=== PATIENT | male | born 1950 | race Caucasian/White ===

== ENCOUNTER 2018-05-11 11:58 | Inpatient (IN) | payer MEDICARE ==
[~2018-05-11] VITALS: Ht 188 cm; Wt 100.7 kg
[~2018-05-11 11:58] MED LIST: CELEBREX50 MG PO; CIALIS5 MG PO; CLARITIN5 MG PO; CRESTOR20 MG PO; ELIQUIS5 MG PO; LUNESTA3 MG PO; MELOXICAM15 MG PO; NORCO 10-325 T1 EACH PO; NORCO 5-325 TA1 EACH PO; ROBAXIN-750750 MG PO; ZOCOR10 MG PO
--- NOTE | 2018-05-11 16:43 | NUR ---
PT ARRIVED TO ROOM 127 VIA STRETCHER, WEIGHED WITH STANDING SCALE 222#. AMBULATED TO VALENTÍN CHAIR. ASSESSMENT COMPLETED, DENIES C/O AT THIS TIME. CARDIAZEM GTT RUNNING AT 10 MG/HR.
[2018-05-11] MEDS ORDERED: ROSUVASTATIN CA20 MG PO (17:30)
--- NOTE | 2018-05-11 17:38 | NUR ---
PT RETURNED TO BED AND VOIDED 600 MLS CLEAR YELLOW URINE. CARDIAZEM GTT DECREASED TO 8MG/HR. HR 94 BPM.
--- NOTE | 2018-05-11 18:09 | NUR ---
MED REC COMPLETE
--- NOTE | 2018-05-11 18:48 | NUR ---
DILTIAZEM GTT DECREASED TO 5MG/HR. HR 88.
--- NOTE | 2018-05-11 19:45 | NUR ---
PATIENT RESTING COMFORTABLY IN BED, BREATHING IS EVEN AND UNLABORED. DENIES NEEDS AT THIS TIME, DENIES PAIN. ASSESSMENT DONE AND MEDICATIONS GIVEN. CALL LIGHT WITHIN REACH.
--- NOTE | 2018-05-11 19:59 | NUR ---
TITRATED CARDIZEM GTT TO 2.5 MG/HR DUE TO HEART RATE REMAINING IN 80s.
--- NOTE | 2018-05-11 21:00 | EKG ---
[facility] [address] [facility] [place], [place] [address] Signed Atrial flutter with variable AV block Abnormal ECG No previous ECGs available Confirmed by ROMA TITUS MD ([id number]) on 05/11/2018 9:00:26 PM Electronically Signed By: ROMA TITUS MD 05/11/18 2100 PATIENT NAME: VEL MCKENZIEOMID III Electrocardiogram DATE OF : 54 PHYSICIAN: ROMA TITUS MD REPORT #: [id number] REPORT IS CONFIDENTIAL AND NOT TO BE RELEASED WITHOUT AUTHORIZATION
--- NOTE | 2018-05-11 22:05 | NUR ---
PATIENT RESTING COMFORTABLY IN BED, BREATHING IS EVEN AND UNLABORED. DENIES NEEDS AT THIS TIME. CARDIZEM GTT DISCONNECTED. CALL LIGHT WITHIN REACH.
--- NOTE | 2018-05-12 | NUR ---
PATIENT RESTING IN BED, BREATHING IS EVEN AND UNLABORED. DENIES NEEDS AT THIS TIME. HEART RATE REMAINS IN 80s WHILE OFF CARDIZEM GTT. CALL LIGHT WITHIN REACH.
--- NOTE | 2018-05-12 02:05 | NUR ---
PATIENT REPORTS NAUSEA WHEN LAYING DOWN TO SLEEP, RELIEVED BY ELEVATING HEAD OF BED. PRN ZOFRAN GIVEN. PATIENT DENIES FURTHER NEEDS. CALL LIGHT WITHIN REACH.
--- NOTE | 2018-05-12 02:24 | NUR ---
PT SPO2 DIPS TO 85% AND THEN BACK TO MID 90'S WHILE SLEEPING. PT HAS KNOWN SLEEP APNEA AND STATES HE USES A CPAP AT HOME. PT DENIES WANTING TO USE A CPAP MACHINE AT THIS TIME. PT IS AGREEABLE TO WEARING OXYGEN 2L AT THIS TIME. WILL CONTINUE TO CLOSELY MONITOR.
--- NOTE | 2018-05-12 04:40 | NUR ---
PT RESTING IN BED. PT WOKE AND TOOK SCHEDULED MEDICATIONS WITH NO DIFFICULTIES. PT REQUESTED TO HAVE BLINDS SHUT. PT ASSESSMENT COMPLETED AND DENIES ANY NEEDS AT THIS TIME. WILL CONTINUE TO ENCOURAGE REST. CALL LIGHT IN HAND. PT CALLS APPROPRIATELY.
--- NOTE | 2018-05-12 06:15 | NUR ---
PATIENT RESTING IN BED, BREATHING IS EVEN AND UNLABORED. DENIES NEEDS AT THIS TIME. CALL LIGHT WITHIN REACH.
--- NOTE | 2018-05-12 07:30 | NUR ---
bedside report recieved.
--- NOTE | 2018-05-12 07:40 | NUR ---
UP TO BR TO EXPELL STOOL. BACK TO BED W/O INCIDENT. DENIES SHORTNESS OF BREATH OR DIZZINESS.
--- NOTE | 2018-05-12 09:00 | NUR ---
TOOK BREAKFAST FAIR. TALKATIVE, IN GOOD SPIRITS.
--- NOTE | 2018-05-12 09:36 | NUR ---
echo being done at bedside.
--- NOTE | 2018-05-12 10:03 | NUR ---
ECHO COMPLETE. PATIENT IS W/O C/O.
--- NOTE | 2018-05-12 11:00 | NUR ---
IS RESTFUL, ROUTINE CARDIZEM 90 MG PO GIVEN.
--- NOTE | 2018-05-12 13:17 | NUR ---
TELE # 3 APPLIED. WILL BE TRANSFERRED TO MEDICAL FLOOR THIS AFTERNOON. IS W/O C/O.
--- NOTE | 2018-05-12 16:00 | NUR ---
ASSESSMENT DONE. IS W/O. HAS BEEN RESTING IN BED MOST OF DAY.
--- NOTE | 2018-05-12 17:30 | NUR ---
RECEIVED REPORT FROM ALVARO. PT WATCHING BASEBALL HAS NO NEEDS.
--- NOTE | 2018-05-12 17:45 | NUR ---
REPORT GIVEN TO MED-SURG, AMBULATED TO ROOM 113 FROM 127. DENIES SHORTNESS OF BREATH OR DIZZINESS,
--- NOTE | 2018-05-12 18:25 | NUR ---
PT TRANSFERED TO THE FLOOR AT 1730. VERY TALKATIVE AND FRIENDLY. DENIES CONCERNS. TELE #3 80-100'S AFIB. ASYMPTOMATIC. O2 WITH SLEEP. 1600 ML FLUID RESTRICTION.
--- NOTE | 2018-05-12 21:30 | NUR ---
REQUESTED ICE WATER, GIVEN. HE IS AWARE HE IS ON FLUID RESTRICTIONS AND IS CURRENLTY UNDER THE 1600 RESTRICTION.
--- NOTE | 2018-05-12 22:20 | NUR ---
MEDICATIONS GIVEN; DENIES NAUSEA, BUT STATED THAT HE GOT SOME "FROM JANNY" LAST NIGHT AND HE SLEPT SO WELL. HE IS AWARE IF HE GETS NAUSEATED HE CAN REQEUST SOME.
--- NOTE | 2018-05-13 01:58 | NUR ---
RECEIVED REPORT AT 0100. PT AT THAT TIME WAS SLEEPING.
--- NOTE | 2018-05-13 04:00 | NUR ---
PT IS STILL SLEEPING AT THIS TIME.
--- NOTE | 2018-05-13 06:03 | NUR ---
PT SLEPT ALL NIGHT AND DID NOT HAVE ANY NEEDS. V/S ARE WDL. PT STATED THAT HE FEELS MUCH BETTER TODAY. EDEMA IN LEFT FOOT IS +1, RIGHT FOOT IS MINIMAL. ALL LOBES ARE CLEAR. FLUID RESTRICTION IS BEING FOLLOWED ORDERED. NO NEW CONCERNS AT THIS TIME.
--- NOTE | 2018-05-13 08:30 | NUR ---
PT UP TO CHAIR TO EAT BREAKFAST, NO DISTRESS, DENIES SOB AND CHEST PAIN. PT STATES HE FEELS "SO MUCH BETTER TODAY". TELE SHOWS AFIB, HR WELL CONTROLLED IN THE 80'S SUSTAINED. WILL CONTINUE TO MONITOR.
--- NOTE | 2018-05-13 12:41 | NUR ---
PT AT BEDSIDE, PT IS ANXIOUS ABOUT UPCOMING SURGERY. PT REFUSED LUNCH. OFFERED ENCOURAGEMENT. NO CHANGES IN CONDITION. WILL CONTINUE TO MONITOR.
--- NOTE | 2018-05-13 16:00 | NUR ---
PT AT BEDSIDE, NO CHANGE IN CONDITION. DISCUSSED FLUID RESTRICTION PARAMETERS. PT IS RESTING COMFORTABLY, DENIES PAIN AND SOB. WILL CONTINUE TO MONITOR.
--- NOTE | 2018-05-13 18:09 | NUR ---
PT WAS ANTICIPATING DISCHARGE TODAY BUT WAS RETAINED DUE TO FINDINGS ON ECHO AND UPCOMING CARDIAC VALVE SURGERY. PT IS CONCERNED ABOUT THIS. PT IS COMPLETELY STABLE, HR 70-80'S SUSTAINED, ARIB ON MONITOR THROUGHOUT SHIFT. PT HAS DENIED PAIN AND SOB THROUGHOUT SHIFT. PT EDEMA HAS CONSIDERED TO DECREASE TO BLE, 1600 CC FLUID RESTRICTION, PT IS COMPLIANT.
--- NOTE | 2018-05-13 19:20 | NUR ---
PATIENT TOOK HIS SHOWER THIS MORNING. AND AM CARE. SITS IN HIS CHAIR FOR EACH MEAL.
--- NOTE | 2018-05-13 19:43 | NUR ---
COOP WITH ASSESSMENT, NO C/O CP PAIN, TELE#[address],
--- NOTE | 2018-05-14 00:06 | NUR ---
RESTING, NO DISTRESS, NO C/O PAIN. TELE#[address]
--- NOTE | 2018-05-14 03:16 | NUR ---
resting, eyes closed, no c/o cp or sob. Call lit at bedside
--- NOTE | 2018-05-14 05:10 | NUR ---
Pt awake, watching tv, no c/o cp or sob. Tele#[address], Irregular hear rate and rhythm, multiform PVC's. Continues to worry about heart valve replacement surgery. Has slept off and on this shift, Independent in room.
--- NOTE | 2018-05-14 05:13 | NUR ---
VITALS AND I&OS DONE AND CHARTED. CALL LIGHT WITHIN REACH. PT NEEDS NOTHING ELSE AT THIS TIME. PT LAYING ON THE COUCH WHEN I LEFT.
[2018-05-14] MEDS ORDERED: DILTIAZEM ER180 MG PO (09:34)
--- NOTE | 2018-05-14 09:58 | NUR ---
PT AT BEDSIDE WITH PARTNER, PT EXPRESSES A NEED FOR MORE SLEEP, AND WAS VERY ANXIOUS LAST NIGHT. PT VS STABLE, AFIB ON TELE, SUSTAINED UNDER 100 BPM. PT DENIES PAIN AND SOB. PREPARING FOR DISCHARGE.
--- NOTE | 2018-05-14 12:52 | NUR ---
I ASKED PATIENT THIS MORNING IF HE WOULD LIKE TO TAKE A SHOWER HE SAID NO BECAUSE HE TOOK A SHOWER THE DAY BEFORE AND HE WAS GOING HOME.
== END 2018-05-14 10:30 | disposition home or self-care (01) | DRG 308 ==
LOC: ED 11:58 → CCU 14:19 → MS 05-12 17:54
PROVIDERS: ADMIT Internal Medicine
DX: I48.91 Unspecified atrial fibrillation (principal); I50.31 Acute diastolic (congestive) heart failure; I08.1 Rheumatic disorders of both mitral and tricuspid valves; E78.5 Hyperlipidemia, unspecified; M10.9 Gout, unspecified; I10 Essential (primary) hypertension; I27.20 Pulmonary hypertension, unspecified; Z79.899 Other long term (current) drug therapy; Z87.891 Personal history of nicotine dependence; Z57.31 Occupational exposure to environmental tobacco smoke
CPT/HCPCS: 36415; 71045; 80048; 80053; 83735; 83880; 84484; 85025; 85610; 93005; 93010; 93306; J2405

== ENCOUNTER 2023-07-08 05:48 | Day surgery (SDC) | payer MEDICARE, OTHER ==
[2023-06-15 09:11] VITALS: BP 120/80
[~2023-07-08] VITALS: Ht 188 cm; Wt 89.5 kg
[~2023-07-08 05:48] MED LIST changes: +ALLOPURINOL100 MG PO; +DILTIAZEM ER180 MG PO; +FUROSEMIDE20 MG PO; +K-TAB ER20 MEQ PO; +LISINOPRIL10 MG PO; +ROSUVASTATIN CA20 MG PO; +ZOLPIDEM TARTRAT5 MG PO
[2023-07-08 06:22] VITALS: BP 129/74
--- NOTE | 2023-07-08 07:12 | NUR ---
PT IN OVERALL GOOD SPIRITS. CONSENTED TO PRAYER. PRAYED FOR SUCCESSFUL PROCEDURE AND AWARENESS OF DIVINE PRESENCE.
--- NOTE | 2023-07-08 08:37 | NUR ---
07/08/23 0837 Chaparrita Mock 0827 PT TO PACU WAKE OFF AND ON, DENIES PAIN AND NAUSEA. PT PASSING AMY.
[2023-07-08 09:15] VITALS: BP 142/85
--- NOTE | 2023-07-08 09:32 | NUR ---
904: PT BACK TO DS RM 9 VIA STRETCHER TO AWAKE AND ALERT TO WAIT HALF LIFE OF MEDICATION PRIOR TO TAKING CARE RIDE HOME. PT HAS WATER AND SOUP ON ARRIVAL, TOLERATES WITH NO NAUSEA. PT DENIES PAIN AND PASSING FLATUS. PT ASKS IF HE CAN GO HOME ANY SOONER IF HE FINDS A FRIEND TO TAKE HIM HOME, IN WHICH HE MAY. 929: PT USES CALL LIGHT TO NOTIFY RN THAT HIS FRIEND MR. BAIRES WILL BE HERE IN ABOUT A HALF HOUR TO TAKE HIM HOME.
--- NOTE | 2023-07-08 10:33 | OR ---
[facility] [address] [place], [place] [address] Signed DATE OF OPERATION: 07/08/2023 SURGEON: Tom Pabon MD PREOPERATIVE DIAGNOSES: 1. Personal history of multiple colonic polyps. 2. Diverticulosis. 3. Internal hemorrhoids. 4. Internal anal skin tags. 5. Tattoo at 14 cm, left lateral rectum. POSTOPERATIVE DIAGNOSES: 1. Moderate left-sided diverticulosis. 2. Minimal internal hemorrhoids with associated skin tags x2. 3. A 12 mm polyp at 85 cm (snare). 4. A 7 mm polyp at 105 cm (snare). 5. A 15 mm polyp at mid right colon (snare, clip). PROCEDURES: Colonoscopy, snare polypectomy, application of clip and hot biopsy. ESTIMATED BLOOD LOSS: None. INDICATIONS: Ghislaine is a 73-year-old gentleman I have known for many years. He is returning for followup colonoscopy. He has no lower GI complaints. There is no family history of colon cancer or polyps. I helped him with his initial colonoscopy in 2011 at the age of 61. He had a 7 mm tubular adenomatous polyp removed. He had minimal diverticulosis along with the internal hemorrhoids and associated skin tags. He came back in 2017 at age of 66. He had an 8 mm tubulovillous adenomatous polyp at 14 cm in the left lateral rectum where we left a tattoo. He had moderate diverticulosis along with internal hemorrhoids and associated skin tags. We kept him on the five year plan. In the office, I had given him a pamphlet on colonoscopy. He recalls the test well. There is risk including, but not limited to gas bloating, crampy abdominal pain, bleeding, perforation requiring surgery, and missed diagnosis. He said the MiraLAX and Gatorade bowel prep worked out very nicely. We had him hold his Eliquis five days prior to the procedure. In addition, he has significant heart history along with sleep apnea, and therefore we asked for monitored anesthesia care that worked out very nicely as he was bradycardic several times and remains in AFib. He had expressed understanding and Electronically Signed By: TOM PABON MD 07/08/23 1033 PATIENT NAME: GHISLAINE TANNER III OPERATIVE REPORT DATE OF : 54 REPORT #: [id number] PHYSICIAN: TOM PABON MD PCP: MARJORIE RAMIRES MD REPORT IS CONFIDENTIAL AND NOT TO BE RELEASED WITHOUT AUTHORIZATION [facility] [address] [place], [place] [address] Signed wished to proceed. DESCRIPTION OF PROCEDURE: Ghislaine was taken into our endoscopy suite and placed in the left lateral decubitus position. He was given monitored anesthesia care per our nurse seasonal recruiter. A digital rectal exam was performed. He had good sphincter tone. Very little in the way of external hemorrhoids. 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 No masses. The adult colonoscope was introduced and advanced under direct visualization of camera. We had to rotate him into the supine position with additional abdominal compression and propofol in order to get the scope up into the cecum itself. Fortunately, his prep was quite good. He did develop bradycardia several times from the scope pressure. He recovered quite nicely without meds with a pause in the colonoscopy. In his mid right colon, we removed a large polyp with the help of the snare. We placed a clip and brought that mucosa back together. We felt confident we got all the tissue removed. We suctioned that through our scope and pieces for pathologic review. He had two other polyps that we removed at 105 cm and 85 cm with the help of the snare, those were removed on the way ends, they could be back As far as 20 cm towards the anus from what it has been recorded. We noted he has some diverticula in the right colon, but mostly in the left colon. They were moderate in size, moderate in number and scattered about. In the rectum, the scope had been retroflexed. We could see that he indeed has internal hemorrhoids with two anal skin tags. We never did see the tattoo in his rectum. After this, the gas was suctioned out, the colonoscope removed. Ghislaine tolerated the procedure quite well. RECOMMENDATIONS: I will see Ghislaine back in my office in 7 to 14 days to review his results. He will resume the Eliquis in one week. It looks like he will be on the five year plan so long his health holds up. Tom Pabon MD ALB/MODL /[id number] cc: Tom Pabon MD Electronically Signed By: TOM PABON MD 07/08/23 1033 PATIENT NAME: GHISLAINE TANNER III OPERATIVE REPORT DATE OF : 54 REPORT #: [id number] PHYSICIAN: TOM PABON MD PCP: MARJORIE RAMIRES MD REPORT IS CONFIDENTIAL AND NOT TO BE RELEASED WITHOUT AUTHORIZATION [facility] [address] [facility] [place], [place] [address] Signed Patient Chart Marjorie Ramires Copies: TOM PABON MD ~ Electronically Signed By: TOM PABON MD 07/08/23 1033 PATIENT NAME: VEL MCKENZIEGHISLAINE III OPERATIVE REPORT DATE OF : 54 REPORT #: [id number] PHYSICIAN: TOM PABON MD PCP: MARJOIRE RAMIRES MD REPORT IS CONFIDENTIAL AND NOT TO BE RELEASED WITHOUT AUTHORIZATION
--- NOTE | 2023-07-10 15:47 | PATH ---
[facility] [address] [place], [place] [address] Signed SPECIMEN(S): A COLON POLYP AT 85 CM SPECIMEN(S): B COLON POLYP AT 105 CM SPECIMEN(S): C MID ASCENDING/RIGHT COLON POLYP SPECIMEN SOURCE: A. COLON POLYP AT 85 CM B. COLON POLYP AT 105 CM C. MID ASCENDING/RIGHT COLON POLYP CLINICAL HISTORY: History of polyps, hemorrhoids, anal skin tags. Postop: Polyps, internal hemorrhoids, diverticula, skin tags. FINAL PATHOLOGIC DIAGNOSIS: A. Colon polyp at 85 cm: - Tubular adenoma. B. Colon polyp at 105 cm: - Tubular adenoma (one fragment). C. Mid ascending / right colon polyp: - Tubular adenoma (three fragments). JVR:[facility] MICROSCOPIC EXAMINATION: Histologic sections of all submitted blocks are examined by light microscopy. These findings, together with the gross examination, support the pathologic diagnosis. GROSS DESCRIPTION: A. The specimen, labeled and designated "Martin Fariaser, colon polyp at 85 cm," is received in formalin and consists of six childers soft tissue fragments, ranging from 0.2-0.5 cm. Entirely submitted in (A1). B. The specimen, labeled and designated "Martin Fariaser, colon polyp at 105 cm," is received in formalin and consists of one childers soft tissue fragment, 0.3 cm. Entirely submitted in (B1). C. The specimen, labeled and designated "Van Marter, mid ascending/right colon polyp," is received in formalin and consists of 3 fragments of childers soft tissue (0.4-0.5 cm in greatest dimension), and 2 polyps of brown-childers soft tissue (0.6 x 0.5 x 0.4 cm and 1.2 x 1.1 x 1.0 cm). The resection margins of the polyps are differentially inked black (bisected) and blue (trisected), respectively. Sectioning reveals red-brown to childers soft cut surfaces. PATIENT NAME: OMID TANNER III PATHOLOGY DATE OF : 54 REPORT #: [id number] PHYSICIAN: [facility] PCP: NOELLE RAMIRES MD REPORT IS CONFIDENTIAL AND NOT TO BE RELEASED WITHOUT AUTHORIZATION [facility] [address] [place], [place] [address] Signed VB (under the direct supervision of a pathologist) The Gross Description was prepared using a voice recognition system. The report was reviewed for accuracy; however, sound-alike word errors, addition and/or deletions may occur. If there is any question about this report, please contact Client Services. PERFORMING LABORATORY: Technical component was performed by [facility], [address] [place] [id number] (CLIA# [id number]). Professional interpretation was performed by [facility] - [facility], [address] [place] [phone] (CLIA#: [id number]). Diagnostician: Uzair Evans MD Pathologist Electronically Signed 07/10/2023 Copies: ~ PATIENT NAME: OMID TANNER III PATHOLOGY DATE OF : 54 REPORT #: [id number] PHYSICIAN: [facility] PCP: NOELLE RAMIRES MD REPORT IS CONFIDENTIAL AND NOT TO BE RELEASED WITHOUT AUTHORIZATION
== END 2023-07-08 09:55 | disposition home or self-care (01) ==
LOC: OPS 05:48 → DS 05:48 → OPS 07:30 → DS 07:30 → OPS 09:55
PROVIDERS: ATTEND Colon & Rectal Surgery
PROC: 0DBK8ZZ Excision of Ascending Colon, Via Natural or Artificial Opening Endoscopic (ICD-10-PCS; principal; 2023-07-08 07:30)
DX: D12.2 Benign neoplasm of ascending colon (principal); Z86.010 Personal history of colon polyps; K64.0 First degree hemorrhoids; Z85.46 Personal history of malignant neoplasm of prostate; K64.4 Residual hemorrhoidal skin tags; G47.33 Obstructive sleep apnea (adult) (pediatric); M10.9 Gout, unspecified; E78.5 Hyperlipidemia, unspecified; K57.30 Diverticulosis of large intestine without perforation or abscess without bleeding; I48.91 Unspecified atrial fibrillation; I50.32 Chronic diastolic (congestive) heart failure; I11.0 Hypertensive heart disease with heart failure; Z79.01 Long term (current) use of anticoagulants
CPT/HCPCS: 00811; J0461; J2704; J7121